=== PATIENT | female | born 1960 | race Caucasian/White ===

== ENCOUNTER → 2021-02-18 | Day surgery (SDC) | payer OTHER ==
[~2021-02-18] VITALS: Ht 160 cm; Wt 81.6 kg
[~2021-02-18] MED LIST: ASPIRIN EC325 MG PO; ELAVIL50 MG PO; FLONASE ALLER15.8 ML; LOVENOX40 MG/0.4 SQ; NEURONTIN300 MG PO; NEURONTIN600 MG PO; NIFEREX150 MG PO; PERCOCET 5-3251 EACH PO; PERCOCET 5/3251 TAB PO; PRILOSEC20 MG PO; ROBAXIN750 MG PO; SEROQUEL 100MG100 MG PO; TOPAMAX50 MG PO; VENTOLIN HFA IN18 GM INH
[2021-02-18 09:20] LABS: ALBUMIN 3.5 g/dL (3.4-5.0); BILIRUBIN - TOTAL 0.4 mg/dL (0.2-1.0); BUN/CREAT RATIO (CALC) 18.2 RATIO; CREATININE 0.77 mg/dL (0.51-0.95); GLOBULIN (CALCULATION) 3.6 g/dL; POTASSIUM 3.9 mmol/L (3.5-5.1); TOTAL PROTEIN 7.1 g/dL (6.4-8.2)
[2021-02-18 09:24] LABS: HCT 39.1 % (37.0-47.0); HGB 13.3 g/dl (12.5-16.0); MCH 31.2 pg (25.0-31.0); MCV 91.8 fL (78.0-100.0); MPV 10.9 fL (6.0-9.5); RBC 4.26 M/uL (4.20-5.40); RDW 12.8 % (11.5-14.0); WBC 9.2 K/uL (4.0-10.5)
== END | disposition home or self-care (01) ==
LOC: FAS 08:04
PROVIDERS: Orthopaedic Surgery
DX: M75.101 Unspecified rotator cuff tear or rupture of right shoulder, not specified as traumatic (principal); M75.51 Bursitis of right shoulder; M19.011 Primary osteoarthritis, right shoulder; F17.200 Nicotine dependence, unspecified, uncomplicated; J44.9 Chronic obstructive pulmonary disease, unspecified; K21.9 Gastro-esophageal reflux disease without esophagitis; F41.9 Anxiety disorder, unspecified; F32.9 Major depressive disorder, single episode, unspecified
CPT/HCPCS: 36415; 71045; 80053; 93005; C1713; J0171; J0690; J1100; J1170; J2250; J2370; J2405; J2704; J2710; J2795; J3010; J7120

== ENCOUNTER 2021-02-19 10:11 | Emergency (ER) | payer OTHER ==
[~2021-02-19 10:11] MED LIST changes: -ROBAXIN750 MG PO
[2021-02-19 13:01] LABS: BASOPHIL 0.6 % (0-2); EOSINOPHIL 1.3 % (0-5); HCT 34.4 % (37.0-47.0); HGB 11.6 g/dl (12.5-16.0); LYMPHOCYTE 27.6 % (15-48); MCH 31.4 pg (25.0-31.0); MCHC 33.7 g/dL (32.0-36.0); MONOCYTE 8.5 % (0-12); MPV 10.7 fL (6.0-9.5); NEUTROPHIL 61.4 % (41-80); NRBC 0; PLT 253 K/uL (150-400); RDW 12.8 % (11.5-14.0); WBC 12.1 K/uL (4.0-10.5)
[2021-02-19 13:18] LABS: ALBUMIN 3.3 g/dL (3.4-5.0); BILIRUBIN - TOTAL 0.3 mg/dL (0.2-1.0); BUN/CREAT RATIO (CALC) 19.3 RATIO; CREATININE 0.83 mg/dL (0.51-0.95); GLOBULIN (CALCULATION) 2.9 g/dL; POTASSIUM 3.6 mmol/L (3.5-5.1); TOTAL PROTEIN 6.2 g/dL (6.4-8.2)
[2021-02-19] MEDS ORDERED: ROBAXIN750 MG PO (14:21)
== END 2021-02-19 14:50 | disposition home or self-care (01) ==
LOC: FER 10:11
PROVIDERS: Emergency Medicine
DX: G89.18 Other acute postprocedural pain (principal); M25.511 Pain in right shoulder; F17.210 Nicotine dependence, cigarettes, uncomplicated
CPT/HCPCS: 36415; 80053; 84145; 85025; J1170; J2405